=== PATIENT | female | born 1990 | race Caucasian/White ===

== ENCOUNTER 2022-01-06 20:48 | Emergency (ER) | payer BC ==
[~2022-01-06] VITALS: Ht 157.5 cm; Wt 98.1 kg
[~2022-01-06 20:48] MED LIST: AMOX500T2 PO
[2022-01-06 21:03] VITALS: BP 130/56
--- NOTE | 2022-01-06 22:03 | NUR ---
bruising noted below ankle, swelling noted. +pedal pulse. awaiting xray results.
== END 2022-01-06 22:34 | disposition home or self-care (01) ==
LOC: ER 20:49
DX: S93.401A Sprain of unspecified ligament of right ankle, initial encounter (principal); R20.0 Anesthesia of skin; Z98.82 Breast implant status; Z79.2 Long term (current) use of antibiotics; X50.1XXA Overexertion from prolonged static or awkward postures, initial encounter; Y93.89 Activity, other specified; Y92.89 Other specified places as the place of occurrence of the external cause; Y99.8 Other external cause status
CPT/HCPCS: 73610; 99283

== ENCOUNTER 2025-05-14 10:27 | Emergency (ER) | payer OTHER ==
[~2025-05-14] VITALS: Ht 160 cm; Wt 74.9 kg
[2025-05-14 10:30] VITALS: BP 154/94; PULSE 80; RESP 18; O2SAT 98
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
[2025-05-14 11:04] VITALS: TEMP 98.1
== END 2025-05-14 11:07 | disposition home or self-care (01) ==
LOC: ER 10:28
DX: Z77.21 Contact with and (suspected) exposure to potentially hazardous body fluids (principal)
CPT/HCPCS: 99282

== ENCOUNTER 2025-08-21 08:30 | Outpatient (CLI) | payer BC ==
[2025-08-21 09:29] LABS: MEAN PLATELET VOLUME 8.7 FL (7.4-10.4); RED CELL DISTRIBUTION WIDTH 12.3 % (11.5-14.5)
[2025-08-21 10:00] LABS: CHOL/HDL RATIO 4.5 (0.00-4.99); CREATININE 0.77 MG/DL (0.40-0.90); LDL CHOLESTEROL 151 MG/DL (50-100); TOTAL CARBON DIOXIDE 24.5 MMOL/L (24-32); eGFR 86 ML/MIN
[2025-08-22 08:17] LABS: ESTRADIOL 50.1 pg/mL (.); FSH, SERUM 5.5 mIU/mL (.); LUTEINIZING HORMONE 7.6 mIU/mL (.); PROGESTERONE 0.1 ng/mL (.)
== END 2025-08-21 23:59 | disposition home or self-care (01) ==
LOC: LAB 08:30
PROVIDERS: ATTEND Nurse Practitioner
DX: I10 Essential (primary) hypertension (principal); R53.83 Other fatigue; F32.A Depression, unspecified; E34.9 Endocrine disorder, unspecified
CPT/HCPCS: 36415; 80053; 80061; 82306; 82607; 82670; 82746; 83001; 83002; 83036; 84144; 84270; 84410; 84439; 84443; 84550; 85025

== ENCOUNTER 2025-10-16 08:56 | Emergency (ER) | payer BC ==
[~2025-10-16] VITALS: Ht 157.5 cm; Wt 74.3 kg
[2025-10-16 09:10] VITALS: TEMP 98.8
--- NOTE | 2025-10-16 09:23 | ELECTROCARDIOGRAPH REPORT ---
[facility] Test Date: 2025-10-16 Test Time: 09:18:50 Pat Name: WINIFRED DAVID Department: [facility] Patient ID: [id number] Room: Gender: F Laborer Driver: : [id number] Requested By: LARISA MILTON Order Number: [id number] Reading MD: Dr. SEBASTIAN Mckenzie Measurements Intervals [place] Rate: 93 P: 53 TX: 144 QRS: 38 QRSD: 87 T: 39 QT: 361 QTc: 449 Interpretive Statements Sinus rhythm Probable left atrial enlargement Electronically Signed On 10-17-2025 16:43:[address] SEBASTIAN Mckenzie Please click the below link to view image of tracing.
--- NOTE | 2025-10-16 09:31 | RADIOLOGY REPORT ---
EXAM: DI CHEST,SINGLE VIEW HISTORY: CP COMPARISON: None TECHNIQUE: Portable upright AP view of the chest was performed. FINDINGS: No pneumothorax, consolidative infiltrates, or pulmonary edema. The heart is not enlarged. IMPRESSION: No acute intrathoracic process.
[2025-10-16 09:41] LABS: MEAN PLATELET VOLUME 8.1 FL (7.4-10.4); RED CELL DISTRIBUTION WIDTH 12.4 % (11.5-14.5)
[2025-10-16 10:17] LABS: CREATININE 0.68 MG/DL (0.40-0.90); PRO BRAIN NATRIURETIC PEPTIDE < 30 PG/ML (0-125); TOTAL CARBON DIOXIDE 24.6 MMOL/L (24-32); eCRCL 92 ML/MIN; eGFR > 90 ML/MIN
[2025-10-16 10:42] LABS: LEUKOCYTE ESTERASE ,URINE NEGATIVE (Neg); NITRITES, URINE NEGATIVE (Neg); OCCULT BLOOD,URINE SMALL (Neg)
[2025-10-16] MEDS: labetalol 20mg/4ml (5mg/ml) syringe IV ONE (10:43)
[2025-10-16 10:54] LABS: UA COLLECTION TYPE NON-SPECIFIED
[2025-10-16 11:01] LABS: MUCUS STRANDS FEW /LPF (Neg); SQUAMOUS EPITHELIAL CELL,UR MANY /LPF (FEW)
[2025-10-16 11:17] LABS: URINE HCG NEGATIVE (NEG)
--- NOTE | 2025-10-16 11:39 | Physician Documentation ---
History of Present Illness ~ Chief Complaint: Shortness of Breath Stated Complaint: CONGESTION Time Seen by MD: 09:19 Primary Medical Doctor: None HPI Patient is a very pleasant 35-year-old female that presents to the emergency department for evaluation of cough and congestion times several weeks. Patient reports she has had symptoms off and on since . Patient reports that she has a productive cough and chest tightness. Patient reports that she has used her son's inhaler at home with improvement. Patient denies fever chills nausea vomiting diarrhea at this time. But does report persistent cough with green sputum production. Patient presents with tachycardia and hypertension. Patient reports that she was previously treated for hypertension but she stopped taking the medication as she was no longer hypertensive. Patient reports that she just started taking phentermine 25 mg twice daily. Patient reports he has a history of anxiety and believes that the phentermine is contributing to her anxiety and elevated heart rate and blood pressure. Patient denies headache chest pressure radiating chest pain visual changes l ightheadedness at this time. Patient reports that she will probably stopped taking the phentermine while she is trying to recover from the upper respiratory symptoms. Patient denies any other symptoms at this time. Medication Reconciliation Allergies: Coded Allergies: No Known Allergies (Unverified , 10/16/25) Scheduled Amoxicillin (Amoxicillin), 1 TAB PO Q8H Past Medical History Past Medical History: No Pertinent History Past Surgical History: other Other Past Surgical History: Breast augmentation Alcohol Use: None Drug Use: none Lives In: Home Occupation: employed Review of Systems ROS As stated above in the HPI, otherwise all systems are reviewed and negative. Physical Exam Vital Signs: Temperature: 98.8, Source: Temporal, Heart Rate: 88, Respiratory Rate: 14, BP: 152/104, Pulse Oximetry: 97, Weight: 74.300 Oxygen Flow Rate: 0 Physical Exam VITALS: Reviewed and as above. GENERAL: Alert, no apparent distress. HEENT: Normocephalic, atraumatic, PERRL, EOMI, dry mucosa, no erythema RESPIRATORY: Lungs clear, normal breath sounds, no respiratory distress. CHEST: No accessory muscle use, no retractions CV: Tachycardic, normal rhythm, no edema, no murmur, No: JVD, hypertension noted, heart rate and hypertension normalized during visit. GI: Soft, non-tender, bowels sounds present, no rebound, guarding, or rigidity BACK: No CVA tenderness, or swelling MUSCULOSKELETAL No deformities, no edema SKIN: Warm and dry, no rash NEURO: Oriented x4, No motor or sensory deficit PSYCH: Normal mood and affect, no agitation Progress Results/Orders Results/Orders Completed Orders - LOVE OLIVA Labetalol Inj. (Trandate 20 Mg/4ml Syrin (10/16/25 10:05) Dexamethasone Tablet (Decadron Tablet) (10/16/25 10:50) Ua With Microscopic (10/16/25 09:59) Hcg, Ur Ql (10/16/25 09:29) Medications Received in ER Medications (Trade) Dose Ordered Sig/Senia Route PRN Reason Start Time Stop Time Status Last Admin Dose Admin (Decadron tablet) 10 mg ONCE ONCE PO 10/16/25 10:50 10/16/25 10:52 DC 10/16/25 10:59 10 MG Vital Signs 10/16/25 10/16/25 10/16/25 10/16/25 09:10 09:20 09:20 09:20 Temp 98.8 Pulse 110 88 Resp 16 19 13 B/P (MAP) 190/115 171/111 (131) Pulse Ox 97 99 100 O2 Delivery Room Air* O2 Flow Rate 0 0 0 FiO2 21 10/16/25 10:37 Pulse 88 Resp 14 B/P (MAP) 152/104 (120) Pulse Ox 97 O2 Flow Rate 0 Laboratory Tests Test 10/16/25 09:26 10/16/25 09:29 10/16/25 09:59 White Blood Count 6.6 Red Blood Count 5.22 Hemoglobin 15.9 Hematocrit 47.2 H Mean Corpuscular Volume 90.5 Mean Corpuscular Hemoglobin 30.4 Mean Corpuscular Hemoglobin Concent 33.6 Red Cell Distribution Width 12.4 Platelet Count 268 Mean Platelet Volume 8.1 Neutrophils (%) (Auto) 71.2 Lymphocytes (%) (Auto) 14.1 L Monocytes (%) (Auto) 8.2 Eosinophils (%) (Auto) 5.5 Basophils (%) (Auto) 1.0 Neutrophils # (Auto) 4.7 Lymphocytes # (Auto) 0.9 L Monocytes # (Auto) 0.5 Eosinophils # (Auto) 0.4 Basophils # (Auto) 0.1 CBC Comment Sodium Level 139 Potassium Level 3.6 Chloride Level 101 Carbon Dioxide Level 24.6 Anion Gap 13 Blood Urea Nitrogen 11 Creatinine 0.68 Estimated GFR/1.73 m2 > 90 BUN/Creatinine Ratio 16.2 Glucose Level 162 H Calcium Level 9.5 Troponin I High Sensitivity 4 Pro-B-Type Natriuretic Peptide < 30 Albumin 4.3 Chemistry Comments Urine HCG, Qualitative Negative Urine Specimen Description Non-specified Urine Color Straw Urine Clarity Clear Urine pH 6.5 Urine Specific [place] <=1.005 Urine Protein Negative Urine Glucose (UA) Negative Urine Ketones Negative Urine Occult Blood Small Urine Nitrite Negative Urine Bilirubin Negative Urine Urobilinogen 0.2 Urine Leukocyte Esterase Negative Urine RBC None seen Urine WBC 0-4 Urine Squamous Epithelial Cells Many Urine Bacteria Few Urine Mucus Few Volume Urine Centrifuged 10 ml Urine Comment Medical Decision Making Additional information obtaine: other Findings Chief Complaint: Cough, congestion, and chest tightness for several weeks Medical Decision Making: Number of Diagnoses/Management Options (Moderate): Acute bronchitis with productive cough Possible reactive airway disease/bronchospasm Phentermine-induced tachycardia and hypertension History of hypertension, currently untreated Amount/Complexity of Data (Moderate): Chest X-ray reviewed (results pending completion of documentation) Vital signs: Initially tachycardic and hypertensive, improved to BP 150s/HR 90s after treatment Clinical response to bronchodilator therapy (son's inhaler) noted Risk of Complications (Moderate): The patient presented with several weeks of productive cough with green sputum and chest tightness, consistent with acute bronchitis. She demonstrated symptomatic improvement with borrowed bronchodilator therapy, suggesting a component of bronchospasm. Per [employer] guidelines, routine antibiotics are not recommended for acute bronchitis in immunocompetent adults unless bacterial superinfection is suspected. Given the duration and productive nature of her cough, if symptoms worsen, reassessment for possible bacterial infection would be warranted. Cardiovascular concerns: The patient's tachycardia and hypertension were te mporally related to phentermine 25 mg twice daily (total 50 mg daily), which exceeds the maximum recommended dose of 37.5 mg daily. Phentermine is known to cause tachycardia, elevation of blood pressure, and cardiovascular adverse effects. Given her history of hypertension and current cardiovascular symptoms, phentermine is contraindicated per FDA labeling, which lists uncontrolled hypertension and cardiovascular disease as contraindications. The [place] [employer] guidelines note that phentermine should be avoided in patients with uncontrolled hypertension or cardiovascular disease. After dexamethasone administration and evaluation, her vital signs improved to safer levels (BP 150s, HR 90s), though blood pressure remains elevated. Respiratory management: The patient received dexamethasone in the emergency department, which is appropriate for potential reactive airway disease. Systemic corticosteroids are indicated for acute exacerbations when bronchospasm is present. Her symptomatic response to bronchodilator therapy supports consideration of underlying reactive airway disease. Disposition Decision: The patient is appropriate for discharge given: Hemodynamic improvement after treatment Normal mental status Ability to maintain adequate oxygenation Symptomatic improvement with bronchodilator therapy No evidence of severe respiratory distress Plan: Discontinue phentermine immediately due to cardiovascular contraindications and contribution to tachycardia/hypertension Prescribe short-acting bronchodilator (albuterol inhaler) for symptomatic relief Consider short course of oral corticosteroids if bronchospasm component is significant Follow up with primary care within 2-7 days for blood pressure management and consideration of antihypertensive therapy Return precautions: worsening dyspnea, chest pain, fever, or inability to control symptoms with prescribed medications Reassessment if cough persists or worsens, with consideration for chest imaging review and targeted investigations Overall Risk Level: Moderate - Multiple chronic conditions requiring ongoing management, medication-induced cardiovascular effects requiring discontinuation, and need for close outpatient follow-up. Heart Score: 1 Differential Dx:Considerations: Include: anxiety, asthma, bronchitis, cardiogenic shock, CHF, COPD, dysrhythmia, hypertension, accelerated, hypertension, essential, hypertension, malignant, hyperventilation, hyponatremia, myocardial infarction, panic attack, pneumonia, pneumonitis, pneumothorax, PSVT, pulmonary embolism, respiratory distress, respiratory failure, sinusitis, upper resp. infection, other Departure Disposition: 01 HOME / SELF CARE / HOMELESS Impression: Primary Impression: Viral lower respiratory infection Additional Impressions: Bronchitis Productive cough Chest tightness Condition: Stable Discharge Instructions: Bronchitis, Viral Syndrome Additional Instructions: Your Diagnosis You were treated in the emergency department today for a cough and chest tightness that has lasted several weeks. This is called acute bronchitis, which is an inflammation of the airways in your lungs. You also have some bronchospasm (tightening of the airways), which is why you felt better when you used your son's inhaler at home. Important Medication Changes STOP taking phentermine immediately. This medication is causing your elevated heart rate and blood pressure, and it is not safe to continue taking it, especially while you have breathing problems. Phentermine can cause: Fast heart rate High blood pressure Anxiety and nervousness Insomnia (trouble sleeping) Do not use phentermine and albuterol together because both medications can increase your heart rate, which could be dangerous. Your New Medications Albuterol Inhaler (Rescue Inhaler) Use this inhaler when you feel chest tightness, wheezing, or shortness of breath Take 2 puffs every 4-6 hours as needed If you need it more often than every 4 hours, call your doctor This medication helps open up your airways so you can breathe easier How to Use Your Inhaler: Shake the inhaler well Breathe out completely Put the inhaler in your mouth and close your lips around it Press down on the inhaler while breathing in slowly and deeply Hold your breath for 10 seconds Wait 1 minute before taking the second puff What to Expect Your cough may last for 2-3 weeks, which is normal for bronchitis Green or yellow mucus does not always mean you need antibiotics - it just means there is inflammation Your symptoms should gradually improve over the next 1-2 weeks Follow-Up Care See your primary care doctor within 2-7 days for: Blood pressure check and possible blood pressure medication Follow-up on your breathing symptoms Discussion about safe weight loss options if needed When to Return to the Emergency Department Come back to the emergency department or call 911 if you develop: Worsening shortness of breath or trouble breathing Chest pain or pressure Fever over 100.4F (38C) Coughing up blood Dizziness or feeling like you might faint Fast heart rate that doesn't improve with rest Severe headache or vision changes Symptoms that get worse instead of better after 3-4 days General Care Instructions Rest as much as possible to help your body heal Drink plenty of fluids (water, warm tea, soup) to help loosen mucus Use a humidifier or breathe in steam from a hot shower to help with congestion Avoid smoking and secondhand smoke, which can make your cough worse Wash your hands frequently to prevent spreading illness to others Blood Pressure Management Your blood pressure was elevated today (in the 150s). This is partly due to the phentermine, but you also have a history of high blood pressure. It is important to: Stop the phentermine as instructed Follow up with your doctor about restarting blood pressure medication Monitor your blood pressure at home if possible Reduce salt in your diet Avoid caffeine and energy drinks Questions? If you have questions about your medications or symptoms, call your primary care doctor's office. If you cannot reach your doctor and have concerning symptoms, return to the emergency department. Remember: Do not restart phentermine without discussing it with your doctor first. Your health and safety are the top priority. Referrals: NO PRIMARY CARE PROVIDER (PCP) Prescriptions albuterol inhaler (Pro-Air Inhaler) 8.5 Gm Inhaler 1-2 PUFFS PO Q4H PRN for shortness of breath for 90 Days, #1 INH Prov: LOVE OLIVA 10/16/25 Education Educated: Patient Educated regarding: diagnosis, treatment, need for follow up LOVE OLIVA Oct 16, 2025 11:39
[2025-10-16] MEDS ORDERED: ALBU8HFA PO (11:49)
[2025-10-16 12:00] VITALS: BP 158/106; PULSE 70; RESP 18; O2SAT 70
== END 2025-10-16 12:06 | disposition home or self-care (01) ==
LOC: ER 08:57
DX: J22 Unspecified acute lower respiratory infection (principal); J20.9 Acute bronchitis, unspecified; F41.9 Anxiety disorder, unspecified; G47.00 Insomnia, unspecified; I10 Essential (primary) hypertension; Z79.899 Other long term (current) drug therapy
CPT/HCPCS: 36415; 71045; 80048; 81001; 81025; 83880; 84484; 85025; 93005; 99285